=== PATIENT | male | born 1980 | race Caucasian/White ===

== ENCOUNTER 2019-08-29 11:28 | Emergency (ER) | payer OTHER ==
[~2019-08-29] VITALS: Ht 167.6 cm; Wt 78.2 kg
[2019-08-29] MEDS ORDERED: IBUP-2071 PO (11:47)
[2019-08-29] MEDS ORDERED: IBUPROFEN 400 MG TABLET PO ONE (12:00)
[2019-08-29 14:28] VITALS: BP 122/73
== END 2019-08-29 15:09 | disposition home or self-care (01) ==
LOC: EMS 11:42
DX: S92.151A Displaced avulsion fracture (chip fracture) of right talus, initial encounter for closed fracture (principal); W21.05XA Struck by basketball, initial encounter; Y93.67 Activity, basketball; Y92.89 Other specified places as the place of occurrence of the external cause; Y99.8 Other external cause status
CPT/HCPCS: 29515